=== PATIENT | female | born 1985 | race African-American/Black ===

== ENCOUNTER 2020-07-14 15:39 | Outpatient (CLI) | payer OTHER | END 2020-07-14 15:40 | disposition home or self-care (01) | LOC: CSHULT 15:39 | PROVIDERS: ATTEND Family Medicine | DX: R10.11 Right upper quadrant pain (principal) | CPT/HCPCS: 93975 ==

== ENCOUNTER 2020-08-17 08:04 | Outpatient (CLI) | payer OTHER | END 2020-08-17 08:05 | disposition home or self-care (01) | LOC: CSHCT 08:04 | PROVIDERS: ATTEND Family Medicine | DX: R10.10 Upper abdominal pain, unspecified (principal); N83.202 Unspecified ovarian cyst, left side; N20.0 Calculus of kidney | CPT/HCPCS: 74177 ==

== ENCOUNTER 2021-03-23 13:24 | Day surgery (SDC) | payer OTHER | END 2021-03-23 15:50 | disposition home or self-care (01) | LOC: CSHSDC/OP 13:24 | PROVIDERS: ATTEND Nurse Practitioner Family | DX: Z23 Encounter for immunization (principal); U07.1 COVID-19 | CPT/HCPCS: 96365; J3490; M0243; Q0244 ==